=== PATIENT | male | born 1950 | race Caucasian/White ===

== ENCOUNTER 2022-10-31 19:08 | Emergency (ER) | payer MEDICARE, SELFPAY ==
--- NOTE | 2022-10-31 19:11 | ECG_ITS ---
Measurements Intervals [place] Rate: 91 P: TX: 0 QRS: 20 QRSD: 88 T: 20 QT: 346 QTc: 427 Interpretive Statements ATRIAL FIBRILLATION BASELINE ARTIFACT- I, II, III, AVR, AVF ABNORMAL ECG NO PREVIOUS ECG AVAILABLE FOR COMPARISON Electronically Signed On 10-31-2022 22:11:06 CDT by Fabrice Wang D.O.
[2022-10-31 19:15] VITALS: BP 115/77; PULSE 90; RESP 18; TEMP 36.4; O2SAT 100
--- NOTE | 2022-10-31 19:15 | ED.GENADULT ---
HPI - General Adult General Chief complaint: Arrhythmia/Palpitations Stated complaint: sent from Dr- irregular HR Time Seen by Provider: 10/31/22 19:14 History of Present Illness HPI narrative: 72-year-old male presented the ED after being referred to the ED by his primary care physician for evaluation of rapid heart rate and palpitations. Patient was seen in the primary care physician's office today but was unable to stay at the office. Patient later called the primary care physician and notified them that he was having these heart palpitations and he was instructed to present to the emergency department. Upon arrival to the ED patient's initial EKG did show evidence of rate controlled atrial fibrillation. Family states that they have noticed that he has had an irregular heartbeat but they did not suspect atrial fibrillation. Patient has no prior history of A-fib. Patient does not take any blood thinners. Patient denies any associated chest pain or shortness of breath, lightheaded or dizziness. Related Data Home Medications Medication Instructions Recorded Confirmed aspirin 81 mg tablet,delayed 81 mg PO DAILY 10/05/21 10/31/22 release (Adult Low Dose Aspirin) cholecalciferol (vitamin D3) 125 5,000 unit PO DAILY 10/05/21 10/31/22 mcg (5,000 unit) capsule lactase 3,000 unit chewable tablet 3,000 unit PO ONCE 10/05/21 10/31/22 omeprazole 20 mg capsule,delayed 20 mg PO DAILY 10/05/21 10/31/22 release fluticasone propionate 50 1 spray intranasal BID 10/31/22 10/31/22 mcg/actuation nasal spray,suspension (Flonase Allergy Relief) loratadine 10 mg tablet (Claritin) 10 mg PO DAILY PRN allergic 10/31/22 10/31/22 symptoms Allergies Allergy/AdvReac Type Severity Reaction Status Date / Time No Known Allergies Allergy Mild Verified 10/09/21 14:23 Review of Systems Review of Systems: All systems reviewed & are unremarkable except as noted in HPI and below [facility] Past Medical History Medical History (Updated 11/01/22 @ 00:00 by Background Daemon) Abnormal fasting glucose Glucose elevated at 105 with hemoglobin A1c 5.7 on 10/17/2021. glucose 108 with hemoglobin A1c 5.5 on 03/29/2022 Allergies Arrhythmia (~10/31/22) irregularly irregular 10/31/2022 BMI 27.0-27.9,adult BPH without obstruction/lower urinary tract symptoms Chronic low back pain without sciatica neuroforaminal stenosis and mild spinal stenosis 02/23/[address]. Chronic thoracic back pain compression fracture T8 on 02/23/2015 Colon cancer screening Eczema Elevated TSH (10/17/21) TSH slightly elevated at 5.59 on 10/17/2021. TSH elevated at 5.12 on 04/02/2022. Encounter for prostate cancer screening Fungal nail infection Gastro-esophageal reflux disease without esophagitis GERD (gastroesophageal reflux disease) History of frequent headaches Lactose intolerance Migraine headache with aura Mixed hyperlipidemia Total cholesterol 175, triglycerides 135, HDL low at 35, LDL 116 on 10/17/2021. Nocturia PSA normal 0.3 on 10/17/2021. Overweight (BMI 25.0-29.9) Reducible right inguinal hernia Seasonal allergic rhinitis Family History Family History Father Lung cancer Heart disease Sibling Alcoholism Depression Anxiety Grandparent Heart disease Grandparent Alcoholism Social History Social History (Updated 04/12/22 @ 08:41 by Mary Dobbs MA) Smoking status: Never smoker Alcohol intake: never Substance use: never Substance use type: does not use Lack of Transportation: No Lack of Food: Never True Current Housing: I Have Housing Concerned About Future Housing: No Difficulty Paying Gas/Electric Bills: No Difficulty Paying for Meds: No Currently Unemployed: No Education: High School Diploma/GED Difficulty w/ Childcare or Family Care: No Exam Narrative: APPEARANCE: Well appearing, no pain, no distress, well-nourished. HEAD: normoceph
[2022-10-31 20:01] LABS: Magnesium 2.3 mg/dL (1.6-2.3)
== END 2022-10-31 20:51 | disposition home or self-care (01) ==
PROVIDERS: Emergency Provider Emergency Medicine; PCP Family Medicine
DX: I48.91 Unspecified atrial fibrillation (principal); E78.2 Mixed hyperlipidemia; N40.0 Benign prostatic hyperplasia without lower urinary tract symptoms; K21.9 Gastro-esophageal reflux disease without esophagitis; E66.3 Overweight; Z68.26 Body mass index [BMI] 26.0-26.9, adult; Z79.82 Long term (current) use of aspirin
CPT/HCPCS: 36415; 83735; 93005; 99284

== ENCOUNTER 2022-11-09 14:34 | Emergency (ER) | payer MEDICARE, SELFPAY ==
--- NOTE | 2022-11-09 14:37 | ED.SKABFB ---
HPI - Skin/Abscess/Foreign Bdy General Chief complaint: Skin/Abscess/Foreign Body Stated complaint: Rash Time Seen by Provider: 11/09/22 14:37 Source: patient Mode of arrival: ambulatory Limitations: no limitations History of Present Illness HPI narrative: Patient is a 72-year-old male who presents with redness and wound to left chest. Patient was in the hospital last week and diagnosed with AFib. Since then area where EKG lead was has become increasingly red, itchy and swollen, denies any drainage from wound. Patient has used Benadryl cream and triple antibiotic ointment with no relief. Denies any history of allergic reaction to adhesive. Has noticed redness growing around wound the last 2 days. Denies any fever, chills, nausea, vomiting, diarrhea. Related Data Home Medications Medication Instructions Recorded Confirmed aspirin 81 mg tablet,delayed 81 mg PO DAILY 10/05/21 11/09/22 release (Adult Low Dose Aspirin) cholecalciferol (vitamin D3) 125 5,000 unit PO DAILY 10/05/21 11/09/22 mcg (5,000 unit) capsule lactase 3,000 unit chewable tablet 3,000 unit PO ONCE 10/05/21 11/09/22 omeprazole 20 mg capsule,delayed 20 mg PO DAILY 10/05/21 11/09/22 release fluticasone propionate 50 1 spray intranasal BID 10/31/22 11/09/22 mcg/actuation nasal spray,suspension (Flonase Allergy Relief) loratadine 10 mg tablet (Claritin) 10 mg PO DAILY PRN allergic 10/31/22 11/09/22 symptoms Allergies Allergy/AdvReac Type Severity Reaction Status Date / Time No Known Allergies Allergy Mild Verified 11/09/22 14:54 Review of Systems Review of Systems: All systems reviewed & are unremarkable except as noted in HPI and below Constitutional: Constitutional: Denies body ache(s), Denies chills, Denies fatigue, Denies fever(s), Denies headache(s), Denies malaise and Denies weakness Eyes: Eyes: Denies blurry vision, Denies irritation and Denies loss of vision ENT: Denies otalgia, Denies headache(s), Denies nasal discharge, Denies sinus pain and Denies sore throat Cardiovascular: Cardiovascular: Denies chest pain, Denies irregular heart rhythm and Denies dyspnea Respiratory: Respiratory: Denies dyspnea Gastrointestinal: Gastrointestinal: Denies abdominal pain, Denies melena, Denies hematochezia, Denies diarrhea, Denies nausea and Denies vomiting Musculoskeletal: Musculoskeletal: Denies back pain, Denies myalgias and Denies arthralgias Integumentary/Breasts: Skin/Breast: Reports pruritus, Denies rash and Reports skin ulcer Neurologic: Denies headache(s), Denies loss of vision and Denies weakness Psychiatric: Psychiatric: Reports no additional psychiatric complaints Endocrine: Endocrine: Denies fatigue [facility] Past Medical History Medical History (Updated 11/09/22 @ 15:18 by Pamela Burch, INDUSTRI[employer] SERVICER HELPER) Abnormal fasting glucose Glucose elevated at 105 with hemoglobin A1c 5.7 on 10/17/2021. glucose 108 with hemoglobin A1c 5.5 on 03/29/2022 Allergies Arrhythmia (~10/31/22) irregularly irregular 10/31/2022 BMI 27.0-27.9,adult BPH without obstruction/lower urinary tract symptoms Chronic low back pain without sciatica neuroforaminal stenosis and mild spinal stenosis 02/23/[address]. Chronic thoracic back pain compression fracture T8 on 02/23/2015 Colon cancer screening Eczema Elevated TSH (10/17/21) TSH slightly elevated at 5.59 on 10/17/2021. TSH elevated at 5.12 on 04/02/2022. Encounter for prostate cancer screening Fungal nail infection Gastro-esophageal reflux disease without esophagitis GERD (gastroesophageal reflux disease) History of frequent headaches Lactose intolerance Migraine headache with aura Mixed hyperlipidemia Total cholesterol 175, triglycerides 135, HDL low at 35, LDL 116 on 10/17/2021. Nocturia PSA normal 0.3 on 10/17/2021. Overweight (BMI 25.0-29.9) Paroxysmal atrial fibrillation (~2022) documented by EKG 10/31/2022. Reducible right inguinal hernia Seasonal allergic rhinitis Family Histor
[2022-11-09 14:50] VITALS: BP 110/64; PULSE 63; RESP 12; TEMP 36.9; O2SAT 100
== END 2022-11-09 15:25 | disposition home or self-care (01) ==
PROVIDERS: Emergency Provider Nurse Practitioner Family; PCP Family Medicine
DX: L03.313 Cellulitis of chest wall (principal); K21.9 Gastro-esophageal reflux disease without esophagitis; E78.2 Mixed hyperlipidemia; I48.0 Paroxysmal atrial fibrillation; Z79.82 Long term (current) use of aspirin
CPT/HCPCS: 99213; G0463

== ENCOUNTER 2022-11-17 07:58 | Outpatient (CLI) | payer MEDICARE, SELFPAY ==
--- NOTE | 2022-11-17 08:19 | ECHO_ITS ---
Patient Info Name: Negrito Monreal Age: 72 years : 1950 Gender: Male Ht: 71 in Wt: 185 lbs BSA: 2.06 m2 HR: 56 bpm BP: 122 / 74 mmHg Heart Rhythm: Sinus Rhythm Technical Quality: Fair Exam Date: 11/17/2022 9:58 AM Exam Location: [facility] Patient Status: Outpatient Admit Date: 11/17/2022 Staff Ordering Physician: Jace Mitchell MD Global Product Manager: Clinton Flor RDCS Attending Provider: Jace Mitchell MD Referring Physician: Stephen BALTAZAR; Exam Type: CA echo doppler color flow Study Info Indications - paroxysmal afib Complete two-dimensional, color flow and Doppler transthoracic echocardiogram is performed. Summary 1. Complete two-dimensional, color flow and Doppler transthoracic echocardiogram is performed. 2. Left ventricular chamber dimension is normal. 3. Left ventricular systolic function is normal, estimated at 60-65%. 4. There is mild concentric increased left ventricular wall thickness. 5. The left ventricular diastolic function is abnormal. 6. E/e' 10 is mildly elevated. 7. Left atrial chamber dimension is mildly enlarged. 8. Linear artifact in the right atrium suggestive of catheter(s), pacemaker lead(s), or ICD lead(s). 9. There is mild to moderate mitral valve regurgitation. 10. There is mild tricuspid valve regurgitation. 11. No pulmonary hypertension, estimated pulmonary arterial systolic pressure is 17 mmHg. Left Ventricle E/e' 10 is mildly elevated. Left ventricular chamber dimension is normal. Left ventricular systolic function is normal, estimated at 60-65%. There is mild concentric increased left ventricular wall thickness. The left ventricular diastolic function is abnormal. Right Ventricle Right ventricular systolic function is normal and with normal TAPSE 3.5 cm. Right ventricular chamber dimension is normal. Left Atria Left atrial chamber dimension is mildly enlarged. Right Atria Linear artifact in the right atrium suggestive of catheter(s), pacemaker lead(s), or ICD lead(s). Right atrial chamber dimension is normal. Aortic Valve The aortic valve is trileaflet. There is no aortic valve stenosis. There is no aortic valve regurgitation. Pulmonic Valve There is no pulmonic regurgitation. Mitral Valve There is no mitral valve stenosis. There is mild to moderate mitral valve regurgitation. Tricuspid Valve There is mild tricuspid valve regurgitation. No pulmonary hypertension, estimated pulmonary arterial systolic pressure is 17 mmHg. Pericardium/Pleural There is no pericardial effusion. Inferior Vena Cava Normal inferior vena cava with >50% collapse upon inspiration consistent with normal right atrial pressure, 5 mmHg. Aorta The aortic root size at the sinus of Valsalva is normal. Left Ventricular Outflow Tract Name Value Normal LVOT 2D LVOT Diameter 2.0 cm LVOT Doppler LVOT Peak Gradient 3 mmHg LVOT Mean Gradient 1 mmHg LVOT VTI 16 cm LVOT VTI/AV VTI Ratio 0.8 LVOT Stroke Volume 54 ml LVOT CO 3.0 l/min LVOT CI
== END 2022-11-17 07:59 | disposition home or self-care (01) ==
LOC: ANHCARD 07:58
PROVIDERS: PCP Family Medicine; Visit Provider Family Medicine
DX: I48.91 Unspecified atrial fibrillation (principal); I34.0 Nonrheumatic mitral (valve) insufficiency; I36.1 Nonrheumatic tricuspid (valve) insufficiency
CPT/HCPCS: 93306

== ENCOUNTER → 2023-05-20 09:01 | Outpatient (CLI) | payer MEDICARE, SELFPAY ==
--- NOTE | ~2023-05-20 | XR_ITS ---
Thoracic spine: Clinical Indication: Back pain AP and lateral views were performed. Possible minimal compression deformity of T8. There is normal alignment of the vertebrae. The interv ertebral disc spaces appear normal. Chronic calcified lymph nodes are present along right paratrachea l stripe region. Impression: Possible minimal compression deformity of T8. Reviewed, dictated and finalized at [facility]. PS CONSULTANT Impression: Possible minimal compression deformity of T8.
--- NOTE | ~2023-05-20 | XR_ITS ---
Lumbosacral Spine: AP, oblique, and lateral views Clinical History: Pain Findings: The normal lordotic curve is maintained. No fracture identified. There is severe degenerati ve disc narrowing at L1-L2, with associated 5 mm retrolisthesis at this level. Remaining disc spaces are preserved. There is minimal facet arthropathy. The sacroiliac joints are normally outlined. Impression: 5 mm retrolisthesis of L1 over L2, with severe degenerative disc narrowing at this level. Reviewed, dictated and finalized at location M. ICAL TRIALS MANAGER Impression: 5 mm retrolisthesis of L1 over L2, with severe degenerative disc narrowing at t his level.
== END ==
PROVIDERS: PCP Family Medicine; Visit Provider Family Medicine
DX: M43.16 Spondylolisthesis, lumbar region (principal); M51.36 Other intervertebral disc degeneration, lumbar region
CPT/HCPCS: 72072; 72110

== ENCOUNTER 2023-08-23 12:04 | Emergency (ER) | payer MEDICARE, SELFPAY ==
--- NOTE | ~2023-08-23 | XR_ITS ---
EXAMINATION: XR chest 2V DATE: 08/23/2023 12:51 INDICATION: Productive cough with difficulty breathing TECHNIQUE: PA and lateral views of the chest were obtained. COMPARISON: Thoracic spine radiographs dated 05/20/2023 FINDINGS: Unchanged prominent biapical pleural-parenchymal scarring. Subtle nipple shadows project over the tray ateral anterior sixth ribs. No other airspace opacities, pulmonary edema, pleural effusion or pneumot horax. Calcified left hilar and mediastinal lymph nodes consistent with old granulomatous disease. Th e cardiomediastinal silhouette is normal. Mild thoracic spondylosis. IMPRESSION: 1. Prominent biapical pleural-parenchymal scarring. No acute cardiopulmonary disease. Reviewed, dictated and finalized at location A. IMPRESSION: 1. Prominent biapical pleural-parenchymal scarring. No acute cardiopulmonary di sease.
[2023-08-23 12:18] VITALS: BP 113/70; PULSE 67; RESP 16; TEMP 36.6; O2SAT 98
--- NOTE | 2023-08-23 12:34 | ED.URI ---
HPI - URI/Sore Throat General Chief Complaint: Upper Respiratory Infection Stated Complaint: cough Time Seen by Provider: 08/23/23 12:22 Source: patient and RN notes reviewed Mode of arrival: ambulatory Limitations: no limitations History of Present Illness HPI Narrative: Patient presents today complaining of a 7-10 day history of productive cough. Also reports some mild rhinorrhea and shortness of breath with exertion. Denies fever, congestion, sore throat. Patient states these symptoms are likely due to his seasonal allergies, but his , who is a nurse, wanted to have him evaluated. He has been taking Claritin and using and nose spray, which does provide some relief. Denies history of asthma or COPD. Related Data Home Medications Medication Instructions Recorded Confirmed cholecalciferol (vitamin D3) 125 5,000 unit PO DAILY 10/05/21 08/23/23 mcg (5,000 unit) capsule lactase 3,000 unit chewable tablet 3,000 unit PO ONCE 10/05/21 08/23/23 loratadine 10 mg tablet (Claritin) 10 mg PO DAILY PRN allergic 10/31/22 08/23/23 symptoms apixaban 5 mg tablet (Eliquis) 5 mg PO BID 05/20/23 08/23/23 omeprazole 20 mg capsule,delayed 20 mg PO . every 3rd day 05/20/23 08/23/23 release terbinafine HCl 250 mg tablet 250 mg PO DAILY 05/20/23 08/23/23 atorvastatin 40 mg tablet 40 mg PO QHS 08/01/23 08/23/23 Allergies Allergy/AdvReac Type Severity Reaction Status Date / Time No Known Allergies Allergy Mild Verified 08/23/23 12:09 Review of Systems Review of Systems: CONSTITUTIONAL: Denies body aches, fever, chills, or sweats. EYES: Denies visual changes, redness, or discharge. ENT: Denies congestion, sore throat, or otalgia.+ rhinorrhea CARDIOVASCULAR: Denies chest pain, palpitations, or edema. RESPIRATORY:+ cough, shortness of breath with exertion GASTROINTESTINAL: Denies abdominal pain, nausea, vomiting, or diarrhea. GENITOURINARY: Denies dysuria or hematuria. SKIN: Denies rash, itching, or wounds. MUSCULOSKELETAL: Denies back pain, joint pain, or myalgia. NEUROLOGIC: Denies headache, numbness, tingling, or weakness. PSYCH: Denies depression or anxiety. [facility] Past Medical History Medical History Abnormal fasting glucose Glucose elevated at 105 with hemoglobin A1c 5.7 on 10/17/2021. glucose 108 with hemoglobin A1c 5.5 on 03/29/2022. Glucose 99 with hemoglobin A1c 5.7 on 04/11/2023. Allergies Arrhythmia (~10/31/22) irregularly irregular 10/31/2022 At low risk for fall BMI 26.0-26.9,adult BMI 27.0-27.9,adult BPH without obstruction/lower urinary tract symptoms Chronic low back pain without sciatica neuroforaminal stenosis and mild spinal stenosis 02/23/[address] Severe degenerative disc disease at L1-L2 on x-ray of the lumbar spine 05/20/2023. Chronic thoracic back pain compression fracture T8 on 02/23/2015 . Chronic mild compression fracture T8 on x-ray of the thoracic spine 05/20/2023 Colon cancer screening patient reports normal colonoscopy [address] Smith with no need for recheck. COVID-19 (~05/21/23) tested positive 05/26/2023. Eczema Elevated TSH (10/17/21) TSH slightly elevated at 5.59 on 10/17/2021. TSH elevated at 5.12 on 04/02/2022. TSH elevated at 5.5 with free T4 1.07 on 04/11/2023. Encounter for prostate cancer screening PSA 0.2 on on 04/11/2023. Fungal nail infection Gastro-esophageal reflux disease without esophagitis GERD (gastroesophageal reflux disease) History of frequent headaches Ischemic cerebrovascular accident (CVA) (07/27/23) acute ischemic infarct left stevens radiata on MRI of the brain 07/27/2023. Lactose intolerance Migraine headache with aura Mixed hyperlipidemia Total cholesterol 175, triglycerides 135, HDL low at 35, LDL 116 on 10/17/2021. Cholesterol 170, triglycerides 133, HDL 37, LDL 109 on 04/11/2023. Nocturia PSA normal 0.3 on 10/17/2021. Overweight (BMI 25.0-29.9) Paroxysmal atrial fibrillat
== END 2023-08-23 13:07 | disposition home or self-care (01) ==
PROVIDERS: Emergency Provider Nurse Practitioner; PCP Family Medicine
DX: J06.9 Acute upper respiratory infection, unspecified (principal); N40.0 Benign prostatic hyperplasia without lower urinary tract symptoms; Z86.16 Personal history of COVID-19; K21.9 Gastro-esophageal reflux disease without esophagitis; E78.2 Mixed hyperlipidemia; I48.0 Paroxysmal atrial fibrillation; Z86.73 Personal history of transient ischemic attack (TIA), and cerebral infarction without residual deficits
CPT/HCPCS: 71046; 99213; G0463

== ENCOUNTER 2024-08-18 14:27 | Emergency (ER) | payer MEDICARE, SELFPAY ==
[2024-08-18 14:40] VITALS: BP 107/54; PULSE 77; RESP 16; TEMP 37.2; O2SAT 100
--- NOTE | 2024-08-18 14:40 | ED_ITS ---
HPI - URI/Sore Throat General Chief Complaint: Upper Respiratory Infection Stated Complaint: chest feels tight Time Seen by Provider: 08/18/24 14:49 Source: patient Mode of arrival: ambulatory Limitations: no limitations History of Present Illness HPI Narrative: 74-year-old male presents with concern for cough and chest congestion. He reports symptoms started 2 days ago. Denies fever body aches chills or sweats. Reports some nasal drainage for which he started taking Claritin. MD elicited complaint: cough Related Data Home Medications ?Medication ?Instructions ?Recorded ?Confirmed ?Last Taken ?Type cholecalciferol (vitamin D3) 125 5,000 unit PO DAILY 10/05/21 08/18/24 Unknown History mcg (5,000 unit) capsule lactase 3,000 unit chewable tablet 3,000 unit PO ONCE 10/05/21 08/18/24 Unknown History loratadine 10 mg tablet (Claritin) 10 mg PO DAILY PRN allergic 10/31/22 08/18/24 Unknown History symptoms apixaban 5 mg tablet (Eliquis) 5 mg PO BID 05/20/23 08/18/24 Unknown History omeprazole 20 mg capsule,delayed 20 mg PO . every 3rd day 05/20/23 08/18/24 Unknown History release Allergies Allergy/AdvReac Type Severity Reaction Status Date / Time No Known Allergies Allergy Mild Verified 08/18/24 14:30 Review of Systems Review of Systems: CONSTITUTIONAL: Denies malaise, chills, sweats, or fever. EYES: Denies visual changes, redness, or discharge. ENT: Reports rhinorrhea. Denies congestion, sinus pain, otalgia and sore throat. CARDIOVASCULAR: Denies chest pain, palpitations, or edema. RESPIRATORY: Reports cough and chest congestion. Denies dyspnea. GASTROINTESTINAL: Denies abdominal pain, nausea, vomiting, diarrhea SKIN: Denies rash or itching. MUSCULOSKELETAL: Denies myalgia. NEUROLOGIC: Denies headache. All systems reviewed & are unremarkable except as noted in HPI and below [facility] Past Medical History Medical History (Updated 08/18/24 @ 15:03 by Coretta Maldonado NP) PFO (patent foramen ovale) PFO closure, November,. positive bubble test on echocardiogram 07/31/2023 with probable PFO, aortic regurgitation, tricuspid regurgitation. BMI 26.0-26.9,adult Ischemic cerebrovascular accident (CVA) (07/27/23) acute ischemic infarct left stevens radiata on MRI of the brain 07/27/2023. COVID-19 (~05/21/23) tested positive 05/26/2023. At low risk for fall Paroxysmal atrial fibrillation (~2022) documented by EKG 10/31/2022. Echocardiogram 11/17/2022 with Sinus rhythm with ejection fraction 60-65% with mild LVH and diastolic dysfunction with mild mitral regurgitation and tricuspid regurgitation. Encounter for prostate cancer screening PSA 0.2 on on 04/11/2023. PSA 0.3 on 06/20/2024. Arrhythmia (~10/31/22) irregularly irregular 10/31/2022 Elevated TSH (10/17/21) TSH slightly elevated at 5.59 on 10/17/2021. TSH elevated at 5.12 on 04/02/2022. TSH elevated at 5.5 with free T4 1.07 on 04/11/2023. TSH 4.80 with free T4 0.98 on 11/20/2023. TSH normal at 4.41 with free T4 at 1.02 on 06/20/2024. Colon cancer screening patient reports normal colonoscopy [address] Smith with no need for recheck. Seasonal allergic rhinitis Eczema Lactose intolerance Gastro-esophageal reflux disease without esophagitis Chronic thoracic back pain compression fracture T8 on 02/23/2015 . Chronic mild compression fracture T8 on x-ray of the thoracic spine 05/20/2023 Chronic low back pain without sciatica neuroforaminal stenosis and mild spinal stenosis 02/23/[address]. Severe degenerative disc disease at L1-L2 on x-ray of the lumbar spine 05/20/2023. Reducible right inguinal hernia BPH without obstruction/lower urinary tract symptoms Fungal nail infection BMI 27.0-27.9,adult Overweight (BMI 25.0-29.9) Migraine headache with aura Abnormal fasting glucose Glucose elevated at 105 with hemoglobin A1c 5.7 on 10/17/2021. glucose 108 with hemoglobin A1c 5.5 on 03/29/2022. Glucose 99 with hemoglobin A1c 5.7 on 04/11/2023. Glucose 105 on 11/20/2023. Fasting glucose 102 with hemoglobin A1c 5.8 and urine microalbumin ratio of 3 with GFR 72 on 06/20/2024. Mixed hyperlipidemia Total cholesterol 175, triglycerides 135, HDL low at 35, LDL 116 on 10/17/2021. Cholesterol 170, triglycerides 133, HDL 37, LDL 109 on 04/11/2023. Cholesterol 116, triglycerides 132, HDL 30, LDL 62 on 11/20/2023.Cholesterol 93, triglycerides 98, HDL 32, LDL 42 on 06/20/2024. Nocturia PSA normal 0.3 on 10/17/2021. History of frequent headaches GERD (gastroesophageal reflux disease) Allergies Family History Family History Father Lung cancer Heart disease Sibling Alcoholism Depression Anxiety Grandparent Heart disease Grandparent Alcoholism Social History Social History Smoking status: Never smoker Alcohol intake: never Substance use: never Substance use type: does not use Lack of Transportation: No Lack of Food: Never True Current Housing: I Have Housing Concerned About Future Housing: No Difficulty Paying Gas/Electric Bills: No Difficulty Paying for Meds: No Currently Unemployed: No Education: High School Diploma/GED Difficulty w/ Childcare or Family Care: No Comments At time of signature, agree with nursing past medical, surgical, social and family history. There is no relevant family history pertinent to the presenting complaint Exam Narrative: GENERAL: Well-appearing, well-nourished, and in no acute distress. HEAD: Normocephalic EYES: PERRLA, conjunctivae clear ENT: Nares clear. Mucous membranes moist. TM pearly alvarado with sharp light reflex bilaterally; no tragal tenderness. Oropharynx not erythematous without lesions. Tonsils not enlarged and without exudate, no drooling, no hoarseness, no trismus, uvula midline. NECK: Supple. No lymphadenopathy CHEST: Clear to auscultation, breath sounds equal. No wheezing, rhonchi, rales, or stridor. No respiratory distress, speaks in full sentences. HEART: Regular rate and rhythm. No murmur heard. SKIN: Warm, dry, no rash. NEURO: Alert and oriented x3. PSYCH: Normal mood and affect Course Course Emergency Course: Patient is aware of diagnosis, understands and agrees to treatment plan. Anticipatory guidance given. Patient agrees to follow-up as directed and is aware of reasons to seek care at the emergency department. Portions of this record may have been created with voice recognition software Level of Care: Express Care Visit Vital Signs Vital signs: Reviewed. MDM - URI/Sore Throat MDM Narrative Medical decision making narrative: Differential diagnosis considered: Stevens virus, strep pharyngitis, allergic rhinitis, upper respiratory tract infection, sinusitis, rhinosinusitis, nasopharyngitis. viral pharyngitis, otitis media, otitis externa, pneumonia, bronchitis, viral cough syndrome, viral syndrome, and influenza. Exam findings show no acute concerns or changes; patient is non-toxic appearing and is in no distress. Patient is appropriate for outpatient treatment and follow-up. Lab Data Attestation: I reviewed the patient's lab results. Critical Care Time Critical Care Time Critical Care Time: No Discharge Plan Discharge Clinical Impression: Upper respiratory infection Patient Disposition: Home, Self-Care Condition: Stable Instructions: Upper Respiratory Infection (ED) Additional Instructions: Your rapid COVID and flu tests are negative Viral illness may last between 7-21 days; antibiotics do not cure viral illness and are NOT recommended at this time. Recommend antihistamine such as Benadryl at night time and Zyrtec or Puja during the day Also, recommend symptomatic treatment includes: rest, fluids, and increase humidity of the air at home. Recommend Acetaminophen as directed on the bottle to reduce fever, pain, headache. Avoid smoking/second-hand smoke. Please schedule a follow-up visit with your personal physician for further evaluation and treatment within 3-5days. If your symptoms persist, change or worsen significantly before you can contact your personal physician then please, without delay, go to the emergency department for further evaluation. Patient Language: Japanese Prescriptions: New methylprednisolone [Medrol (Serafin)] 4 mg tablets,dose pack See Rx Instructions .ROUTE .COMPLEX Qty: 21 0RF Rx Instructions: orally per package directions guaifenesin [Mucinex] 1,200 mg tablet extended release 12hr 1,200 mg PO Q12H PRN (Reason: cough) Qty: 20 0RF No Action loratadine [Claritin] 10 mg tablet 10 mg PO DAILY PRN (Reason: allergic symptoms) Eliquis 5 mg tablet 5 mg PO BID Patient Comments: Started by cardiologists in February, omeprazole 20 mg capsule,delayed release(DR/EC) 20 mg PO . every 3rd day cholecalciferol (vitamin D3) 125 mcg (5,000 unit) capsule 5,000 unit PO DAILY lactase 3,000 unit tablet,chewable 3,000 unit PO ONCE Rx Instructions: administer with meals and/or snacks atorvastatin 40 mg tablet 40 mg PO QHS Qty: 90 3RF Follow-up/Referrals: Jace Mitchell MD [Primary Care Provider] - Time of Disposition: 15:04
[2024-08-18 15:05] LABS: EDCOVIDSCREEN Negative (Negative)
[2024-08-18 15:06] LABS: EDINFLUASCREEN Negative (Negative); EDINFLUBSCREEN Negative (Negative)
== END 2024-08-18 15:13 | disposition home or self-care (01) ==
PROVIDERS: Emergency Provider Nurse Practitioner; PCP Family Medicine
DX: J06.9 Acute upper respiratory infection, unspecified (principal); Z20.822 Contact with and (suspected) exposure to COVID-19; I48.0 Paroxysmal atrial fibrillation; K21.9 Gastro-esophageal reflux disease without esophagitis; E78.2 Mixed hyperlipidemia; Z86.73 Personal history of transient ischemic attack (TIA), and cerebral infarction without residual deficits; Z79.01 Long term (current) use of anticoagulants
CPT/HCPCS: 87426; 87804; 99213; G0463

== ENCOUNTER 2024-09-01 16:12 | Outpatient (CLI) | payer MEDICARE, SELFPAY ==
--- NOTE | ~2024-09-01 | XR_ITS ---
CHEST RADIOGRAPH, PA AND LATERAL CLINICAL HISTORY: R05.9 - Cough, unspecified . COMPARISON: 08/23/2023 TECHNIQUE: PA and lateral views of the chest. FINDINGS Calcified lymph nodes within the mediastinum, unchanged from prior, suggesting prior granulomatous di sease. Loop recorder projects to the left of midline. Amplatzer device presumably within a patent foramen ovale The remainder of the cardiomediastinal silhouette is otherwise unremarkable. Redemonstration of biapical scarring, right greater than left. The remainder of the lungs are otherwise clear. Visualized osseous structures and soft tissues are unremarkable. IMPRESSION: Biapical scarring, without focal infiltrate or effusion. Reviewed, dictated and finalized at location A.
== END 2024-09-01 16:13 | disposition home or self-care (01) ==
LOC: GOSHIMG 16:13
PROVIDERS: PCP Nurse Practitioner Family; Visit Provider Nurse Practitioner Family
DX: R05.9 Cough, unspecified (principal); R91.8 Other nonspecific abnormal finding of lung field
CPT/HCPCS: 71046

== ENCOUNTER → 2024-09-25 15:43 | Outpatient (CLI) | payer MEDICARE, SELFPAY ==
--- NOTE | ~2024-09-25 | XR_ITS ---
3 VIEWS LUMBAR SPINE Ordering provider: Jace Mitchell MD History: . M54.50 - Low back pain, unspecified . Comparison: None. FINDINGS: VERTEBRAL BODIES: No visible fracture or subluxation. Degenerative changes of the spine. DISK SPACES: Narrowing of the disc L1-L2, and L3-L4. Facet joint disease at the level of L4-L5 and L5-S1. SOFT TISSUES: Normal. IMPRESSION: No acute osseous abnormality lumbar spine. Multilevel degenerative disc disease. Reviewed, dictated and finalized at location A.
--- NOTE | ~2024-09-25 | XR_ITS ---
3 VIEWS THORACIC SPINE Ordering provider: Jace Mitchell MD History: . M54.6 - Pain in thoracic spine . Comparison: None. FINDINGS: VERTEBRAL BODIES: Loss of volume is seen in 2 of the vertebrae in the midthoracic area most likely ch ronic. MRI evaluation advised. Otherwise, Normal height and alignment. No visible subluxation. Mild d egenerative changes. DISK SPACES: Multilevel degenerative disc disease in the midthoracic area. SOFT TISSUES: Normal. Device projected over the left hemithorax. Valve Prosthesis is seen in the heart. IMPRESSION: Loss of volume in two of the vertebrae in the midthoracic area most likely chronic. MRI evaluation ad vised. Otherwise Multilevel degenerative disc disease. Reviewed, dictated and finalized at location A. 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 MRI evaluation advised. Otherwise Multilevel degenerative disc disease.
== END ==
PROVIDERS: PCP Family Medicine; Visit Provider Family Medicine
DX: M51.34 Other intervertebral disc degeneration, thoracic region (principal); M51.369 Other intervertebral disc degeneration, lumbar region without mention of lumbar back pain or lower extremity pain
CPT/HCPCS: 72070; 72110

== ENCOUNTER 2024-10-06 10:02 | Outpatient (CLI) | payer MEDICARE, SELFPAY ==
--- NOTE | ~2024-10-06 | MR_ITS ---
MRI of the thoracic spine Clinical History: Pain Technique: Axial T2-weighted and gradient images, and sagittal T1-weighted, T2-weighted, and STIR brian ges were acquired. Findings: There is no acute fracture or subluxation of the thoracic spine. There is mild chronic comp ression deformity of T10 and T8. No bone marrow signal abnormality seen. No significant disc bulge or herniation seen at any thoracic level. No spinal canal stenosis, cord co mpression, or neural foraminal narrowing evident in the thoracic spine. No epidural mass or collection seen. No abnormal signal seen in the spinal cord. Paravertebral soft tissues are unremarkable. Impression: No acute abnormality. Mild chronic compression deformities of T8 and T10. Reviewed, dictated and finalized at [facility]. Impression: No acute abnormality. Mild chronic compression deformities of T8 and T10.
--- NOTE | ~2024-10-06 | MR_ITS ---
MRI of the lumbar spine Clinical History: Right-sided sciatica Technique: Axial T2-weighted images, and sagittal T1-weighted, T2-weighted, and T2 fat-sat images wer e acquired. Findings: There is no fracture of the lumbar spine. There is 3 mm retrolisthesis of L1 over L2. No nobles spicious bone marrow signal abnormality seen. At L1-L2, there is advanced degenerative disc narrowing. There is minimal disc bulge with minimal fac et arthropathy. No central canal stenosis. There is moderate to advanced right neural foraminal narro wing. Left neural foramen preserved. At L2-L3, there is no disc bulge or herniation. There is mild facet arthropathy. No central canal oniel nosis or neural foraminal narrowing. At L3-L4, there is minimal disc bulge with moderate facet arthropathy. No central canal stenosis or n eural foraminal narrowing. At L4-L5, there is minimal disc bulge with mild to moderate facet arthropathy. No central canal steno sis. There is mild to moderate left neural foraminal narrowing, and minimal right neural foraminal na rrowing. At L5-S1, there is minimal disc bulge with moderate facet arthropathy. No central canal stenosis. The re is mild bilateral neural foraminal narrowing. Paravertebral soft tissues are unremarkable. Impression: Moderate degenerative spondylosis at L1-L2, as detailed above, with associated 3 mm retrolisthesis at this level. Additional mild degenerative changes, as above. Reviewed, dictated and finalized at [facility]. Impression: Moderate degenerative spondylosis at L1-L2, as detailed above, with associated 3 mm retrolisthesis at this level. Additional mild degenerative changes, as above.
== END 2024-10-06 10:03 | disposition home or self-care (01) ==
PROVIDERS: Visit Provider Family Medicine
DX: M54.6 Pain in thoracic spine (principal); M47.896 Other spondylosis, lumbar region
CPT/HCPCS: 72146; 72148

== ENCOUNTER 2025-04-18 10:21 | Emergency (ER) | payer MEDICARE, SELFPAY ==
--- NOTE | 2025-04-18 10:29 | ED_ITS ---
HPI - URI/Sore Throat General Chief Complaint: Upper Respiratory Infection Stated Complaint: sore throat Patient presents to the [facility] with complaints of headache, sore throat, minimal nasal drainage that began about 2 days ago. noted he does take Claritin daily and occasionally uses a generic Flonase nasal spray. no known sick contacts. Denies fever, chills, body aches, dizziness, difficulty swallowing, sinus pain, cough, nausea, vomiting, diarrhea, or shortness of breath. Related Data Home Medications ?Medication ?Instructions ?Recorded ?Confirmed ?Last Taken ?Type cholecalciferol (vitamin D3) 125 5,000 unit PO DAILY 0 10/05/21 09/01/24 Unknown History mcg (5,000 unit) capsule lactase 3,000 unit chewable tablet 3,000 unit PO ONCE 10/05/21 09/01/24 Unknown History loratadine 10 mg tablet (Claritin) 10 mg PO DAILY PRN allergic 10/31/22 09/01/24 Unknown History symptoms apixaban 5 mg tablet (Eliquis) 5 mg PO BID 05/20/23 Unknown History omeprazole 20 mg capsule,delayed 20 mg PO . every 3rd day 05/20/23 09/01/24 Unknown History release Allergies Allergy/AdvReac Type Severity Reaction Status Date / Time No Known Allergies Allergy Mild Verified 04/18/25 10:43 Review of Systems Constitutional: Constitutional: Reports as per HPI, Denies chills, Denies fatigue, Denies fever(s) and Denies weakness Eyes: Eyes: Reports no additional eye complaints ENT: Reports as per HPI, Denies vertigo, Denies dizziness, Denies nasal congestion and Reports sore throat Comments: nasal drainage Cardiovascular: Cardiovascular: Reports no additional cardiovascular complaints Respiratory: Respiratory: Reports no additional respiratory complaints Gastrointestinal: Gastrointestinal: Reports as per HPI, Denies abdominal pain, Denies diarrhea, Denies nausea and Denies vomiting Genitourinary: Genitourinary: Reports no additional male genitourinary complaints Musculoskeletal: Musculoskeletal: Reports as per HPI, Denies back pain and Denies myalgias Integumentary/Breasts: Skin/Breast: Reports as per HPI, Denies erythema and Denies rash Neurologic: Reports as per HPI, Denies vertigo, Denies dizziness, Reports headache(s) and Denies weakness Psychiatric: Psychiatric: Reports no additional psychiatric complaints Endocrine: Endocrine: Reports no additional endocrine complaints Hematologic/Lymphatic: Hematologic/Lymphatic: Reports no additional hematologic/lymphatic complaints Allergic/Immunologic: Allergic/Immunologic: Reports no additional allergic/immunologic complaints [facility] Past Medical History Medical History (Updated 04/18/25 @ 11:07 by Keiry Loaiza, DIPLOMA DENTAL ASSISTANT, [employer]ARN[employer]DER-C) Chronic low back pain with right-sided sciatica MRI of the lumbar spine on 10/06/2024 reveals degenerative disc disease at L1-L2 with no stenosis with right-sided neuroforaminal narrowing. Mild bulging disc at L4-L5 with mild to moderate left neural foraminal narrowing. Bronchitis Cough PFO (patent foramen ovale) PFO closure, November,. positive bubble test on echocardiogram 07/31/2023 with probable PFO, aortic regurgitation, tricuspid regurgitation. BMI 26.0-26.9,adult Ischemic cerebrovascular accident (CVA) (07/27/23) acute ischemic infarct left stevens radiata on MRI of the brain 07/27/2023. COVID-19 (~05/21/23) tested positive 05/26/2023. At low risk for fall Paroxysmal atrial fibrillation (~2022) documented by EKG 10/31/2022. Echocardiogram 11/17/2022 with Sinus rhythm with ejection fraction 60-65% with mild LVH and diastolic dysfunction with mild mitral regurgitation and tricuspid regurgitation. Encounter for prostate cancer screening PSA 0.2 on on 04/11/2023. PSA 0.3 on 06/20/2024. Arrhythmia (~10/31/22) irregularly irregular 10/31/2022 Elevated TSH (10/17/21) TSH slightly elevated at 5.59 on 10/17/2021. TSH elevated at 5.12 on 04/02/2022. TSH elevated at 5.5 with free T4 1.07 on 04/11/2023. TSH 4.80 with free T4 0.98 on 11/20/2023. TSH normal at 4.41 with free T4 at 1.02 on 06/20/2024. Colon cancer screening patient reports normal colonoscopy [address] Smith with no need for recheck. Seasonal allergic rhinitis Eczema Lactose intolerance Gastro-esophageal reflux disease without esophagitis Chronic thoracic back pain compression fracture T8 on 02/23/2015 . Chronic mild compression fracture T8 on x-ray of the thoracic spine 05/20/2023. MRI of the thoracic spine on 10/06/2024 reveals mild chronic compression deformities at T8 and T10 but otherwise unremarkable. Chronic low back pain without sciatica neuroforaminal stenosis and mild spinal stenosis 02/23/[address] Severe degenerative disc disease at L1-L2 on x-ray of the lumbar spine 05/20/2023. Reducible right inguinal hernia BPH without obstruction/lower urinary tract symptoms Fungal nail infection BMI 27.0-27.9,adult Overweight (BMI 25.0-29.9) Migraine headache with aura Abnormal fasting glucose Glucose elevated at 105 with hemoglobin A1c 5.7 on 10/17/2021. glucose 108 with hemoglobin A1c 5.5 on 03/29/2022. Glucose 99 with hemoglobin A1c 5.7 on 04/11/2023. Glucose 105 on 11/20/2023. Fasting glucose 102 with hemoglobin A1c 5.8 and urine microalbumin ratio of 3 with GFR 72 on 06/20/2024. Mixed hyperlipidemia Total cholesterol 175, triglycerides 135, HDL low at 35, LDL 116 on 10/17/2021. Cholesterol 170, triglycerides 133, HDL 37, LDL 109 on 04/11/2023. Cholesterol 116, triglycerides 132, HDL 30, LDL 62 on 11/20/2023.Cholesterol 93, triglycerides 98, HDL 32, LDL 42 on 06/20/2024. Nocturia PSA normal 0.3 on 10/17/2021. History of frequent headaches GERD (gastroesophageal reflux disease) Allergies Family History Family History Father Lung cancer Heart disease Sibling Alcoholism Depression Anxiety Grandparent Heart disease Grandparent Alcoholism Social History Social History Smoking status: Never smoker Alcohol intake: never Substance use: never Substance use type: does not use Lack of Transportation: No Lack of Food: Never True Current Housing: I Have Housing Concerned About Future Housing: No Difficulty Paying Gas/Electric Bills: No Difficulty Paying for Meds: No Currently Unemployed: No Education: High School Diploma/GED Difficulty w/ Childcare or Family Care: No Exam Const: General: healthy appearing and no acute distress Nutritional Appearance: well nourished Orientation/consciousness: patient oriented x3 Limitations: no limitations HENMT: Head: normal to inspection Ears: external ears normal and TM's normal bilaterally Face/Nose/Sinus: Normal external nose present, nares abnormal ( Moderate erythema and edema noted) and Nasal discharge present ( thick, clear) Face and sinus: normal facial exam and sinuses nontender Mouth: Yes Normal oral and palatal mucosa present, Yes lip normal and Yes moist mucous membranes Throat: posterior oropharynx abnormal ( mild erythema and edema noted.) Neck: Neck: normal visual inspection and no lymphadenopathy Resp: Effort & Inspection: normal respiratory effort Auscultation: clear to auscultation bilaterally Cardio: Rate: regular rate Rhythm: regular rhythm Skin: General skin exam: normal color Rashes: no rashes Wounds: no wounds Neuro: General: patient oriented x3 Speech: normal speech Gait exam (Neuro): Normal gait present Psych: Mental Status: mental status grossly normal Affect: normal affect Attitude: cooperative Course Course Level of Care: Express Care Visit Vital Signs Vital signs: Vital Signs Temperature 99.5 F 04/18/25 10:33 Pulse Rate 78 04/18/25 10:33 Respiratory Rate 16 04/18/25 10:33 Blood Pressure 98/65 L 04/18/25 10:33 Pulse Oximetry 100 04/18/25 10:33 Oxygen Delivery Room Air 04/18/25 10:33 Temperature 99.5 F 04/18/25 10:33 Pulse Rate 78 04/18/25 10:33 Respiratory Rate 16 04/18/25 10:33 Blood Pressure 98/65 L 04/18/25 10:33 Pulse Oximetry 100 04/18/25 10:33 Oxygen Delivery Room Air 04/18/25 10:33 MDM - URI/Sore Throat MDM Narrative Medical decision making narrative: Strep, flu, COVID completed in Express Care The patient was evaluated by myself in the express care. History is obtained from patient who is an independent historian and physical exam was performed. Available medical records were reviewed at this time. Exam findings show no acute concerns or changes; patient is non-toxic appearing and is in no distress. Patient is appropriate for outpatient treatment and follow-up. I have evaluated and discussed social determinants of health with the patient that could potentially impact subsequent diagnosis and treatment plans. Differential diagnosis and treatment plan were discussed with the patient. Patient agrees with discussion and after shared medical decision making agrees with plan of care. All questions were answered to the patient's satisfaction. Differential Diagnosis Differential diagnosis: Likely upper respiratory infection, croup, otitis media, sinusitis, viral infection, bronchitis, influenza and pharyngitis Medical Records Attestation: I reviewed the patient's medical records. Lab Data Attestation: I reviewed the patient's lab results. Labs: Lab Results 04/18/25 04/18/25 Range/Units 10:29 11:00 POC Influenza A Ag Negative (Negative) POC Influenza B Ag Negative (Negative) POC SARS CoV-2 Ag Negative (Negative) POC Grp A Strep Screen Negative (Negative) Discharge Plan Discharge Clinical Impression: Upper respiratory infection Patient Disposition: Home Condition: Stable Instructions: Antibiotic Form, Upper Respiratory Infection (ED), Cold Symptoms (ED) Additional Instructions: Viral illness may last between 7-12days; antibiotic is NOT recommended at this time. Recommend antihistamine such as Benadryl at night time and Claritin/Zyrtec/Puja during the day. Also using steroid nasal spray like Flonase can help with symptoms and congestion. Using sudafed for significant congestion will also give some relief. Cough syrup may cause drowsiness; avoid driving or take it at night time. Use inhaler as needed for cough, wheezing, shortness of breath or chest tightness. Also, recommend symptomatic treatment includes: rest, fluids, increase humidity of the air at home. Recommend Acetaminophen or nonsteroidal anti-inflammatory agents(NSAIDs) as directed in the bottle to reduce fever and/pain/headache. Avoid smoking/second-hand smoke. Limit visits to areas with large crowds. Frequent hand washing or hand hardboard grinder is one of the best ways to prevent spread of infection. Please schedule a followup visit with your personal physician for further evaluation and treatment within 3-5days. Including recheck and discussion of your blood pressure. If your symptoms persist, change or worsen significantly before you can contact your personal physician then please, without delay, go to the emergency department for further evaluation. Patient Language: Mexican Prescriptions: New methylprednisolone [Medrol (Serafin)] 4 mg tablets,dose pack See Rx Instructions .ROUTE .COMPLEX Qty: 21 0RF Rx Instructions: for 6 days No Action loratadine [Claritin] 10 mg tablet 10 mg PO DAILY PRN (Reason: allergic symptoms) Eliquis 5 mg tablet 5 mg PO BID Patient Comments: Started by cardiologists in February, omeprazole 20 mg capsule,delayed release(DR/EC) 20 mg PO . every 3rd day cholecalciferol (vitamin D3) 125 mcg (5,000 unit) capsule 5,000 unit PO DAILY lactase 3,000 unit tablet,chewable 3,000 unit PO ONCE Rx Instructions: administer with meals and/or snacks pravastatin 80 mg tablet 80 mg PO DAILY Qty: 90 3RF atorvastatin 40 mg tablet 40 mg PO QHS Qty: 90 3RF Follow-up/Referrals: Jace Mitchell MD [Primary Care Provider, [facility]] Time of Disposition: 11:07
[2025-04-18 10:33] VITALS: BP 98/65; PULSE 78; RESP 16; TEMP 37.5; O2SAT 100
[2025-04-18 10:44] LABS: EDSTREPNEGPOS1 Negative (Negative)
[2025-04-18 11:03] LABS: EDCOVIDSCREEN Negative (Negative); EDINFLUASCREEN Negative (Negative); EDINFLUBSCREEN Negative (Negative)
== END 2025-04-18 11:10 | disposition home or self-care (01) ==
PROVIDERS: Emergency Provider Nurse Practitioner Family; PCP Family Medicine
DX: J06.9 Acute upper respiratory infection, unspecified (principal); Z20.822 Contact with and (suspected) exposure to COVID-19; I48.0 Paroxysmal atrial fibrillation; K21.9 Gastro-esophageal reflux disease without esophagitis; N40.0 Benign prostatic hyperplasia without lower urinary tract symptoms; E78.2 Mixed hyperlipidemia; Z86.16 Personal history of COVID-19; Z86.73 Personal history of transient ischemic attack (TIA), and cerebral infarction without residual deficits; Z79.01 Long term (current) use of anticoagulants
CPT/HCPCS: 87081; 87426; 87804; 87880; 99213; G0463